=== PATIENT | male | born 1955 | race Caucasian/White ===

== ENCOUNTER 2017-01-25 10:16 | Emergency (ER) | payer BC ==
[~2017-01-25] VITALS: Ht 188 cm; Wt 86.2 kg
[2017-01-25 10:20] VITALS: Ht 188 cm; Wt 86.2 kg
[2017-01-25] MEDS ORDERED: VERA120T11 PO (10:36)
[2017-01-25] MEDS ORDERED: CITA20TA9 PO (10:36)
[2017-01-25] MEDS ORDERED: RIZA10TA26 PO (10:36)
[2017-01-25] MEDS ORDERED: ATEN25TA PO (10:36)
[2017-01-25] MEDS ORDERED: ASPI1TAB7 PO (10:36)
--- NOTE | 2017-01-25 11:01 | NUR ---
PROVIDER DR MELENDEZ AT BEDSIDE
[2017-01-25 11:06] LABS: BLOOD, URINE 2+ (NEGATIVE); COLOR,URINE YELLOW (YELLOW); LEUKOCYTE ESTERASE ,URINE NEGATIVE (NEGATIVE); NITRITE,URINE NEGATIVE (NEGATIVE); UROBILINOGEN,URINE 0.2 EU/DL (NORMAL)
--- NOTE | 2017-01-25 11:11 | ERPDOC ---
Departure Disposition Decision Date: January 25, 2017 Disposition Decision Time: 12:58 Disposition: 01 DISCHARGED HOME, SELF-CARE Impression Impression Impression: Primary Impression: Kidney stone Additional Impression: Hydronephrosis Severity: Moderate Condition: Improved Seen By: Physician only Patient Instructions: Kidney Stones (ED) Problems/Meds/Labs Reviewed?: Yes Medications reviewed and manag: Yes Additional Instructions: Percocet 5 mg tablet, one to 2 tablets every 6 hours as needed when necessary pain. Zofran 4 mg tablet, 1 tablet every 6 hours as needed for nausea. Flomax 0.4 mg tablet, [address] Stauffer tomorrow at 11:15 AM in [place]. Follow up care ordered?: Yes Mental Status: Alert, Oriented Scripts Ondansetron HCl (Zofran) 4 Mg Tablet 4 MG PO Q6H for NAUSEA, #30 TAB Prov: FLAQUITA MELENDEZ MD 01/25/17 Oxycodone HCl/Acetaminophen (Percocet 5-325 mg Tablet) 5-325 Tablet 1-2 TAB PO QID for PAIN, #30 TAB Take 1 tablet, by mouth, 4 times a day. Prov: FLAQUITA MELENDEZ MD 01/25/17 HPI - Abdominal Pain General Chief Complaint: Flank Pain Stated Complaint: KIDNEY STONES Time Seen by Provider: 11:10 HPI - Abdominal Pain Initial Comments 61-year-old gentleman with history of kidney stone. He has had multiple stones and also able to pass them. He has right-sided flank pain which started yesterday and kept him from sleeping. He feels like it is a kidney stone again. He's had some blood in his urine as well. No fever or chills. Allergies: Coded Allergies: cefuroxime (Verified Allergy, Unknown, 01/25/17) topiramate (Verified Adverse Reaction, Unknown, "BUGS CRAWLING IN HEAD", ) Past History Patient Medical History Problem List Updates: Anxiety, migraine, hypertension Surgical History Joint: other (kidney stone) Review of Systems GI Upper Abdomen: see HPI Lower Abdomen: see HPI General: see HPI All other Systems All Other Systems: Reviewed and Negative Physical Exam General General Nourishment: well nourished, well developed, appears stated age Distress Description Flank pain. General Body Habitus: well groomed Vitals and Pain First Documented Vital Signs Date Time Temp Pulse Resp B/P Pulse Ox O2 Delivery O2 Flow Rate FiO2 01/25/17 10:20 98.4 62 18 124/65 99 Room Air Weight: Kilograms: 86.200 Height (feet): 6 Height (inches): 2.00 Triage Pain Scale: Normal Exams: Head: Normocephalic w/o trauma Neck: Full range of motion, without adenopathy, JVD, bruits or thyromegaly Chest/Resp: Clear all garner, with good airflow, and symmetry bilaterally CV: Regular rate and rhythm, without murmur or gallop, Pulses 2+ all extremities, capillary refill, <2 seconds all ext., no pedal edema noted Abdomen: Bowel sounds positive, soft, non-tender, non-distended, no hepatosplenomegaly, masses or bruits noted Neurologic: Patient is alert, and oriented, cranial nerves, motor/sensory/ cerebellar, exams w/o gross deficits, to observation Psychiatric: Patient exhibits, appropriate attention, emotion and affect Differential Diagnoses Considering: Appendicitis, Aortic Dissection, Ileus, Pancreatitis, Renal Colic , Other Progress Results/Orders Orders Procedure Category Date Status Time Cbc W/Auto LAB 01/25/17 Complete Diff-Reflex Manual Cmp - Comprehensive LAB 01/25/17 Complete Metabolic UA, LAB 01/25/17 Complete Dip&Micro(Complete) & 10:43 Iv Lock (Ed Only) EDM 01/25/17 Transmitted 11:11 Nothing By Mouth (Ed EDM 01/25/17 Transmitted Only) 11:11 Lipase LAB 01/25/17 Complete 11:11 Ua, Dip Wreflex LAB 01/25/17 Logged Microsc & Handkerchief Sample Clerk 11:11 Ct Renal W/O Contrast CT 01/25/17 Resulted 11:11 Ketorolac (Toradol) PHA 01/25/17 Complete 11:45 Hydromorphone PHA 01/25/17 Complete (Dilaudid) 11:45 Normal Saline (Normal PHA 01/25/17 Complete Saline Iv) 11:45 Ondansetron Inj PHA 01/25/17 Complete (Zofran) 12:00 Lab Results Laboratory Tests Test 01/25/17 10:36 01/25/17 10:43 White Blood Count 10.8T/MM3 Red Blood Count 5.01M/MM3 Hemoglobin 13.9GM/DL Hematocrit 42.7% Mean Corpuscular Volume 85.2UM3 Mean Corpuscular Hemoglobin 27.7UUG Mean Corpuscular Hemoglobin Concent 32.6GM/DL RDW Standard Deviation 45.4FL Platelet Count 225T/MM3 Mean Platelet Volume 11.6UM3 Immature Granulocyte % (Auto) % Neutrophils (%) (Auto) % Lymphocytes (%) (Auto) % Monocytes (%) (Auto) % Eosinophils (%) (Auto) % Basophils (%) (Auto) % Absolute Immature Granulocyte (auto T/MM3 Absolute Neutrophils (auto) T/MM3 Absolute Lymphocytes (auto) T/MM3 Absolute Monocytes (auto) T/MM3 Absolute Eosinophils (auto) T/MM3 Absolute Basophils (auto) T/MM3 Neutrophils % (Manual) 83.0% Band Neutrophils % 3.0% Lymphocytes % (Manual) 8.0% Monocytes % (Manual) 6.0% Absolute Neutrophils (Manual) 9.0T/MM3 Band Neutrophils # 0.3T/MM3 Lymphocytes # (Manual) 0.9T/MM3 Monocytes # (Manual) 0.6T/MM3 Red Cell Morphology Comment Normal Turbidity < 20 Sodium Level 146MEQ/L Potassium Level 4.2MEQ/L Chloride Level 107MEQ/L Carbon Dioxide Level 24MEQ/L Anion Gap 15MEQ/L Blood Urea Nitrogen 17.0MG/DL Creatinine 1.1MG/DL Glomerular Filtration Rate Calc 68 BUN/Creatinine Ratio 16RATIO Glucose Level 110MG/DL Calculated Osmolality 284MOSM/KG Calcium Level 9.2MG/DL Total Bilirubin 0.50MG/DL Icterus Index < 2 Aspartate Amino Transf (AST/SGOT) 38U/L Alanine Aminotransferase (ALT/SGPT) 39U/L Alkaline Phosphatase 116U/L Total Protein 7.5G/DL Albumin 4.5G/DL Globulin 3.0G/DL Albumin/Globulin Ratio 1.5RATIO Lipase 79U/L Chemistry Specimen Hemolysis 33 Urine Collection Type Voided-not cc-midstr Urine Color Yellow Urine Turbidity Clear Urine pH 7.0 Urine Specific [place] 1.015 Urine Protein Negative Urine Glucose (UA) Negative Urine Ketones Negative Urine Blood 2+ Urine Nitrite Negative Urine Bilirubin Negative Urine Urobilinogen 0.2EU/DL Urine Leukocyte Esterase Negative Urine RBC 10-20/HPF Urine WBC None seen/HPF Urine Bacteria Negative Urine Culture Indicated Cult not indicated Medications Current ED Medications Ketorolac Tromethamine (Toradol) 30 mg O ONCE IV Last administered on 12:00; Start 01/25/17 at 11:45; Stop 01/25/17 at 11:52; Status DC Hydromorphone HCl 0.5 mg 0.5 mg O ONCE IV Last administered on 01/25/17 12:03 ; Start 01/25/17 at 11:45; Stop 01/25/17 at 11:52; Status DC Sodium Chloride (Normal Saline IV) 1,000 ml @ 1,000 mls/hr Q1H ONCE IV Last administered on 01/25/17 11:57; Start 01/25/17 at 11:45; Stop 01/25/17 at 12:44 ; Status DC Ondansetron HCl (Zofran) 4 mg O ONCE IV Last administered on 01/25/17 11:58; Start 01/25/17 at 12:00; Stop 01/25/17 at 12:01; Status DC Progress Progress CT abdomen and pelvis shows 7 mm kidney stone at right UVJ. Severe hydronephrosis is also noted. I spoke with Dr. Stauffer's nurse, the patient can be scheduled to be seen in clinic tomorrow at 11:15 AM. White count is 10.8 and kidney function is appropriate. Patient was given 1 L normal saline IV as well as Toradol 30 mg and Dilaudid 0.5 mg. He responded nicely to these. He'll be discharged with Percocet 5 mg tabs which worked well with his last kidney stone. Also Zofran and Flomax. He can return if pain is increasing. We'll let Dr. Stauffer make a decision on whether he needs intervention tomorrow due to the hydronephrosis. FLAQUITA MELENDEZ MD January 25, 2017 11:11
[2017-01-25 11:12] LABS: ALBUMIN 4.5 G/DL (3.5-5.0); ALBUMIN/GLOBULIN RATIO 1.5 RATIO (1.1-2.2); ALKALINE PHOSPHATASE 116 U/L (38-126); ALT (SGPT) 39 U/L (21-72); ANION GAP 15 MEQ/L (5-15); AST (SGOT) 38 U/L (17-59); BUN/CREATININE RATIO 16 RATIO (6-26); CALCIUM 9.2 MG/DL (8.4-10.2); CHLORIDE 107 MEQ/L (98-107); CO2 - CARBON DIOXIDE 24 MEQ/L (22-30); CREATININE 1.1 MG/DL (0.8-1.5); GLOMERULAR FILTRATION RATE 68; GLUCOSE 110 MG/DL (75-110); POTASSIUM 4.2 MEQ/L (3.6-5); SODIUM 146 MEQ/L (134-144); TOTAL PROTEIN 7.5 G/DL (6.3-8.2)
[2017-01-25 11:15] LABS: HCT - HEMATOCRIT 42.7 % (41-53); HGB - HEMOGLOBIN 13.9 GM/DL (13.5-17.5); MEAN CORPUSCULAR HGB 27.7 UUG (26-34); MEAN CORPUSCULAR HGB CONC(MCHC 32.6 GM/DL (31-37); MEAN CORPUSCULAR VOLUME 85.2 UM3 (80-100); MEAN PLATELET VOLUME 11.6 UM3 (9.4-12.4); RED BLOOD COUNT 5.01 M/MM3 (4.50-5.90); WBC - WHITE BLOOD COUNT 10.8 T/MM3 (4.5-11.0)
[2017-01-25 11:31] LABS: BACTERIA,URINE NEGATIVE (NEGATIVE); WBC,URINE NONE SEEN /HPF (0-5)
[2017-01-25 11:35] LABS: BAND NEUTROPHILS # 0.3 T/MM3; LYMPHOCYTES # (MANUAL) 0.9 T/MM3 (1-4.8); MONOCYTES # (MANUAL) 0.6 T/MM3 (0-0.8); TOTAL CELLS COUNTED 100 %
--- NOTE | 2017-01-25 11:35 | NUR ---
UPDATE PATIENT LYING IN BED, PATIENT CONTINUES TO HAVE C/O PAIN. DR MELENDEZ NOTIFIED
--- NOTE | 2017-01-25 11:37 | DI ---
Indication: ITS.REASON: possible kidney stone. PROCEDURE: CT RENAL W/O CONTRAST: Encounter: Initial Comparison: None Technique: Axial CT images were performed through the abdomen and pelvis without intravenous contrast. Coronal and sagittal two-dimensional reformats. Automated Exposure Control and Iterative Reconstruction dose reducing techniques were utilized. Findings: Mild atelectasis in the lung bases. The unenhanced contours of the liver are unremarkable. The gallbladder is normal. The spleen, pancreas and adrenal glands are within normal limits. Left kidney shows two nonobstructing stones in the upper pole and interpolar area measuring up to 5 mm in size. There is also a lower pole medial cyst. No left-sided ureteral stone. Right kidney shows severe hydronephrosis with perinephric inflammatory stranding and severe hydroureter to the level of a 7 mm stone at the ureterovesicular junction. Bladder appears normal. Prostate and rectum are unremarkable. No free fluid. No evidence of a bowel obstruction. Bone windows show degenerative change in the spine. Partially sacralized L5 vertebra. Impression: 7 mm right distal ureteral stone at the ureterovesicular junction causing severe obstruction. .
[2017-01-25] MEDS ORDERED: KETOROLAC 30mg/ml INJECTION IV ONE (11:45)
[2017-01-25] MEDS ORDERED: HYDROMORPHONE 2mg/ml INJECTION IV ONE (11:45)
[2017-01-25] MEDS ORDERED: NORMAL SALINE 1,000 ML IV ONE (11:45)
[2017-01-25] MEDS ORDERED: ONDANSETRON 4mg/2ml INJECTION IV ONE (12:00)
[2017-01-25] MEDS ORDERED: ONDA4TAB4 PO (13:01)
[2017-01-25] MEDS ORDERED: OXYC1TAB8 PO (13:01)
[2017-01-25 13:12] VITALS: BP 116/85; PULSE 72; RESP 17; TEMP 98.4; O2SAT 95
== END 2017-01-25 13:12 | disposition home or self-care (01) ==
LOC: ED 10:16
DX: N13.2 Hydronephrosis with renal and ureteral calculous obstruction (principal); Z87.442 Personal history of urinary calculi
CPT/HCPCS: 74176; 80053; 81001; 83690; 85025; 96361; 96374; 96375; 99284; J1170; J1885; J2405; J7030